=== PATIENT | female | born 1960 ===

== ENCOUNTER 2024-06-06 15:35 | Emergency (ER) | payer SELFPAY ==
[2024-06-06 15:41] VITALS: RESP 18; TEMP 98.8
--- NOTE | 2024-06-06 16:09 | ED ---
Fall HPI - General Chief Complaint: Fall Stated Complaint: Head injury Time Seen by Provider: 06/06/24 15:52 Source: patient, RN notes reviewed Mode of arrival: ambulatory - History of Present Illness Initial Comments: 64-year-old female presents emergency department chief complaint of fall. Patient was camping when she tripped over [place] stump [place]. She admitted a kitchen knife. Patient denies loss of consciousness at the time. Additionally, she denies presyncopal symptoms over the time of the fall such as dizziness, lightheadedness, heart palpitations, lightheadedness. Currently patient states that she has mild pain over the right forehead where she fell. She is currently denying chest pain, chest pressure, dizziness, lightheadedness, blurry or double vision. No acute neurological deficits. Patient is not on blood thinners. States her last tetanus vaccination was within the last 5 years. - Related Data Allergies Allergy/AdvReac Type Severity Reaction Status Date / Time Sulfa (Sulfonamide Allergy Anaphylaxis Verified 06/06/24 15:42 Antibiotics) Review of Systems ROS Statement: Those systems with pertinent positive or pertinent negative responses have been documented in the HPI. ROS Other: All systems not noted in ROS Statement are negative. Past Medical History Past Medical History: Cancer Additional Past Medical History / Comment(s): oral CA, History of Any Multi-Drug Resistant Organisms: None Reported Past Surgical History: Orthopedic Surgery Additional Past Surgical History / Comment(s): PEg tube, oral surgery Smoking Status: Former smoker Past Alcohol Use History: None Reported Past Drug Use History: Marijuana General Exam Limitations: no limitations General appearance: alert, in no apparent distress Head exam: Present: other (right forehead 2 cm laceration with mild edema and ecchymosis) Eye exam: Present: normal appearance, PERRL, EOMI. Absent: scleral icterus, conjunctival injection, periorbital swelling ENT exam: Present: normal exam, mucous membranes moist Neck exam: Present: normal inspection. Absent: tenderness, meningismus, lymphadenopathy Respiratory exam: Present: normal lung sounds bilaterally. Absent: respiratory distress, wheezes, rales, rhonchi, stridor Cardiovascular Exam: Present: regular rate, normal rhythm, normal heart sounds. Absent: systolic murmur, diastolic murmur, rubs, gallop, clicks GI/Abdominal exam: Present: soft, normal bowel sounds. Absent: distended, tenderness, guarding, rebound, rigid Extremities exam: Present: normal inspection, full ROM, normal capillary refill. Absent: tenderness, pedal edema, joint swelling, calf tenderness Back exam: Present: normal inspection Neurological exam: Present: alert, oriented X3, CN II-XII intact Skin exam: Present: warm, dry, intact, normal color. Absent: rash Course Vital Signs 06/06/24 15:37 Temperature 98.8 F Pulse Rate 75 Respiratory 18 Rate Blood Pressure 124/75 O2 Sat by Pulse 95 Oximetry Procedures - Laceration Laceration #1 Consent Obtained: verbal consent Site: face Size (cm): 3 Description: linear Depth: simple, single layer Pre-repair: irrigated extensively Type of Sutures: other (exofen) Size of Sutures: other (exofen) Patient Tolerated Procedure: well, no complications Medical Decision Making - Medical Decision Making Was pt. sent in by a medical professional or institution (, PA, SALES AND SERVICE SPECIALIST, urgent care, hospital, or correction...) When possible be specific @ -No Did you speak to anyone other than the patient for history (EMS, parent, family, police, friend...)? What history was obtained from this source @ -History of bedside assessment patient fell approximately 3 feet into the kitchen at the [facility] and there is no loss conscious at the time of fall. Did you review nursing and triage notes (agree or disagree)? Why? @ -I reviewed and agree with nursing and triage notes Were old charts reviewed (outside hosp., previous admission, EMS record, old EKG, old radiological studies, urgent care reports/EKG's, correction records)? Report findings @ -No old charts were reviewed Differential Diagnosis (chest pain, altered mental status, abdominal pain women, abdominal pain men, vaginal bleeding, weakness, fever, dyspnea, syncope, headache, dizziness, GI bleed, back pain, seizure, CVA, palpatations, mental health, musculoskeletal)? @ -laceration, contusion, ecchymosis, restlessness are all inclusive EKG interpreted by me (3pts min.). @ -none X-rays interpreted by me (1pt min.). @ -None done CT interpreted by me (1pt min.). @ -None done U/S interpreted by me (1pt. min.). @ -None done What testing was considered but not performed or refused? (CT, X-rays, U/S, labs)? Why? @ -CT brain without contrast considered, but deferred at this time. [place] head CT rules with 'consider CT imaging' discussion with patient the option of Ct scan to rule out potential intracranial pathology, patient has declined at this time. There was no loss of consciousness, patient is not on blood thinners, GCS currently 15 with no acute complaints or neurological deficits on examination. Patient is in agreement with deferring CT imaging at this time. What meds were considered but not given or refused? Why? @ -None Did you discuss the management of the patient with other professionals (professionals i.e. , PA, SALES AND SERVICE SPECIALIST, lab, RT, psych nurse, social organization professor, technician chemical cleaning, teacher, public health service officer, therapeutic case manager)? Give summary @ -No Was smoking cessation discussed for >3mins.? @ -No Was critical care preformed (if so, how long)? @ -No Were there social determinants of health that impacted care today? How? (Homelessness, low income, unemployed, alcoholism, drug addiction, transportation, low edu. Level, literacy, decrease access to med. care, [facility], rehab)? @ -No Was there de-escalation of care discussed even if they declined (Discuss DNR or withdrawal of care, Hospice)? DNR status @ -No What co-morbidities impacted this encounter? (DM, HTN, Smoking, COPD, CAD, Cancer, CVA, ARF, Chemo, Hep., AIDS, mental health diagnosis, sleep apnea, morbid obesity)? @ -None Was patient admitted / discharged? Hospital course, mention meds given and route, prescriptions, significant lab abnormalities, going to OR and other pertinent info. @ -Discharge. 63-year-old female with a fall. On examination patient noted to have approximately 2 cm laceration to the right forehead with mild ecchymosis and edema. There are no acute neurological deficits. Vitals within normal limits. Patient is up-to-date on tetanus vaccination. Area was cleansed and Exofin topical adhesive applied over the area. Recommend patient continue area clean and dry over the next 1 week and do not saturate the area with water as this may temporarily be adhesive. Recommend follow-up care as scheduled. All questions answered at bedside and strict return prior discussed with patient to progress understanding. Case discussed with Dr. Reid Undiagnosed new problem with uncertain prognosis? @ -No Drug Therapy requiring intensive monitoring for toxicity (Heparin, Nitro, Insulin, Cardizem)? @ -No Were any procedures done? @ -wound irrigation, Exofin topical adhesive Diagnosis/symptom? @ -Laceration, minor head trauma, fall Acute, or Chronic, or Acute on Chronic? @ -acute Uncomplicated (without systemic symptoms) or Complicated (systemic symptoms)? @ -uncomplicated Side effects of treatment? @ -No Exacerbation, Progression, or Severe Exacerbation? @ -No Poses a threat to life or bodily function? How? (Chest pain, [place], [place], pneumonia, PE, COPD, DKA, ARF, appy, cholecystitis, CVA, Diverticulitis, Homicidal, Suicidal, threat to staff... and all critical care pts) @ -No Disposition Clinical Impression: Minor head trauma, Laceration, Fall Disposition: HOME SELF-CARE Condition: Good Instructions (If sedation given, give patient instructions): Fall Prevention for Older Adults (ED), Skin Adhesive Care (ED) Additional Instructions: Return to the emergency department for any new or worsening symptoms. Continue to keep area clean and dry over the next week. Is patient prescribed a controlled substance at d/c from ED?: No Referrals: None,Stated [Primary Care Provider] - 1-2 days Time of Disposition: 16:45
[2024-06-06] MEDS: TOPICAL SKIN ADHESIVE 1 EACH AMP TOPICAL ONE (16:29)
[2024-06-06 16:57] VITALS: BP 124/75; PULSE 75
== END 2024-06-06 16:58 | disposition home or self-care (01) ==
LOC: EC 15:35
CPT/HCPCS: 99283